=== PATIENT | male | born 1945 | race Caucasian/White ===

== ENCOUNTER → 2016-10-03 | Outpatient (CLI) | payer OTHER | LOC: FIMAGING 13:33 | PROVIDERS: ATTEND Internal Medicine Hematology & Oncology | DX: Z12.89 Encounter for screening for malignant neoplasm of other sites (principal); D47.2 Monoclonal gammopathy ==

== ENCOUNTER → 2017-03-28 | Outpatient (CLI) | payer OTHER | LOC: FIMAGING 07:42 | DX: Z13.6 Encounter for screening for cardiovascular disorders (principal) ==

== ENCOUNTER → 2017-05-18 | Outpatient (CLI) | payer OTHER | LOC: FIMAGING 15:16 | PROVIDERS: ATTEND Physician Assistant | DX: J84.9 Interstitial pulmonary disease, unspecified (principal); J40 Bronchitis, not specified as acute or chronic ==

== ENCOUNTER → 2017-07-05 | Outpatient (CLI) | payer OTHER | LOC: FIMAGING 11:06 | DX: S42.325A Nondisplaced transverse fracture of shaft of humerus, left arm, initial encounter for closed fracture (principal) ==

== ENCOUNTER → 2017-09-12 | Outpatient (CLI) | payer OTHER | LOC: FIMAGING 09:20 | DX: M54.9 Dorsalgia, unspecified (principal); Z98.1 Arthrodesis status ==

== ENCOUNTER → 2018-01-29 | Outpatient (CLI) | payer OTHER | DX: M48.061 Spinal stenosis, lumbar region without neurogenic claudication (principal) | CPT/HCPCS: 72158; A9585 ==